=== PATIENT | female | born 1930 | race Caucasian/White ===

== ENCOUNTER 2017-11-19 07:57 | Emergency (ER) | payer MEDICARE, BC ==
[~2017-11-19] VITALS: Ht 162.6 cm; Wt 65.0 kg
[2017-11-19 08:12] VITALS: BP 178/81; PULSE 59; RESP 20; TEMP 98.5; O2SAT 100
[2017-11-19] MEDS ORDERED: MELA5 PO (08:31)
[2017-11-19] MEDS ORDERED: TRAZ50TA12 PO (08:31)
[2017-11-19] MEDS ORDERED: METO1TAB42 PO (08:31)
[2017-11-19] MEDS ORDERED: AMIO0.1T PO (08:31)
[2017-11-19] MEDS ORDERED: ASPI-516 CHEW (08:31)
[2017-11-19] MEDS ORDERED: LOSA25TA PO ×2 (08:31)
[2017-11-19] MEDS ORDERED: FURO1TAB60 PO (08:31)
[2017-11-19] MEDS ORDERED: HYDR-3516 PO (08:31)
[2017-11-19] MEDS ORDERED: KLOR10TA PO (08:31)
[2017-11-19] MEDS ORDERED: PRAV40TA PO (08:31)
[2017-11-19] MEDS ORDERED: SYNT112T PO (08:31)
[2017-11-19] MEDS ORDERED: CELE200C PO (08:31)
[2017-11-19] MEDS ORDERED: CYCLOBENZAPRINE HCL 10 MG TAB PO ONE (08:45)
[2017-11-19] MEDS ORDERED: ACETAMINOPHEN 325 MG TAB PO ONE (08:45)
[2017-11-19 08:48] LABS: AUTOMATED NEUTROPHIL # 5.5 TH/MM3 (1.8-7.7); BASOPHIL % 0.4 % (0.0-2.0); EOSINOPHIL # 0.1 TH/MM3 (0-0.4); EOSINOPHIL % 1.8 % (0.0-4.0); HEMATOCRIT 38.8 % (35.0-46.0); LYMPH % 12.3 % (9.0-44.0); LYMPHOCYTE # 0.9 TH/MM3 (1.0-4.8); MEAN CELL VOLUME 89.8 FL (80.0-100.0); MEAN CORPUSCULAR HEMOGLOBIN 30.2 PG (27.0-34.0); MEAN CORPUSCULAR HGB CONC 33.7 % (32.0-36.0); MEAN PLATELET VOLUME 8.4 FL (7.0-11.0); MONO % 8.8 % (0.0-8.0); MONOCYTE # 0.6 TH/MM3 (0-0.9); NEUT % 76.7 % (16.0-70.0); PLATELET COUNT 148 TH/MM3 (150-450); RED BLOOD COUNT 4.31 MIL/MM3 (4.00-5.30); RED CELL DISTRIBUTION WIDTH 14.9 % (11.6-17.2); WHITE BLOOD COUNT 7.1 TH/MM3 (4.0-11.0)
--- NOTE | 2017-11-19 09:05 | RADRPT ---
EXAM DATE/TIME: 11/19/2017 08:35 [facility] COMPARISON: No previous studies available for comparison. INDICATIONS : Patient fell, complains of head and neck pain RADIATION DOSE: 56.35 CTDIvol (mGy) MEDICAL HISTORY : Cardiovascular disease. Hypertension. Melanoma SURGICAL HISTORY : None. ENCOUNTER: Initial ACUITY: 1 day PAIN SCALE: 9/10 LOCATION: cranial TECHNIQUE: Multiple contiguous axial images were obtained of the head. Using automated exposure control and adj ustment of the mA and/or kV according to patient size, radiation dose was kept as low as reasonably a chievable to obtain optimal diagnostic quality images. DICOM format image data is available electro nically for review and comparison. FINDINGS: CEREBRUM: Very small amount of subdural blood layering along e along the left tentorial edge and in the posteri or parafalcine space. There is no parenchymal hemorrhage. Ventricular size is appropriate. POSTERIOR FOSSA: The cerebellum and brainstem are intact. The 4th ventricle is midline. The cerebellopontine angle i s unremarkable. EXTRACRANIAL: The visualized portion of the orbits is intact. SKULL: The calvaria is intact. No evidence of skull fracture. CONCLUSION: Small posterior parafalcine subdural hematoma. Aryan Montes MD FACR on November 19, 2017 at 9:00 Board Certified Radiologist. This report was verified electronically.
[2017-11-19 09:15] LABS: ALBUMIN 3.7 GM/DL (3.4-5.0); AST (GOT) 37 U/L (15-37); BLOOD UREA NITROGEN 26 MG/DL (7-18); CALCIUM 9.2 MG/DL (8.5-10.1); CHLORIDE 105 MEQ/L (98-107); CREATININE 1.16 MG/DL (0.50-1.00); GLOMERULAR FILTRATION RATE 44 ML/MIN (>89); GLUCOSE,RANDOM 122 MG/DL (74-106); SODIUM (NA) 139 MEQ/L (136-145)
[2017-11-19 09:16] LABS: ALT (GPT) 37 U/L (10-53)
[2017-11-19 09:20] LABS: ALKALINE PHOSPHATASE 77 U/L (45-117); TOTAL BILIRUBIN ADULT 0.4 MG/DL (0.2-1.0); TOTAL PROTEIN 7.1 GM/DL (6.4-8.2); TROPONIN I LESS THAN 0.02 NG/ML (0.02-0.05)
--- NOTE | 2017-11-19 09:42 | RADRPT ---
EXAM DATE/TIME: 11/19/2017 08:35 [facility] COMPARISON: CT BRAIN W/O CONTRAST, November 19, 2017, 8:35. INDICATIONS : Patient fell, complains of head and neck pain RADIATION DOSE: 21.17 CTDIvol (mGy) MEDICAL HISTORY : Cardiovascular disease. Hypertension. melanoma SURGICAL HISTORY : None. ENCOUNTER: Initial ACUITY: 1 day PAIN SCALE: 8/10 LOCATION: neck TECHNIQUE: Volumetric scanning of the cervical spine was performed. Multiplanar reconstructions in the sagittal, coronal and oblique axial planes were performed. Using automated exposure control and adjustment o f the mA and/or kV according to patient size, radiation dose was kept as low as reasonably achievable to obtain optimal diagnostic quality images. DICOM format image data is available electronically f or review and comparison. FINDINGS: VERTEBRAE: Normal vertebral body height. ALIGNMENT: There is no fracture base of the dens with anterior subluxation by 6 mm. This is associated with mar ked scoliosis. The body of C2 is intact. C2-C3: Moderate neuroforaminal encroachment on the right with facet disease C3-C4: Degenerative changes in the facets without fracture C4-C5: Moderate uncinate ridging with bilateral neural foramen encroachment C5-C6: Moderately ridging and bilateral foramen encroachment C6-C7: Mild uncinate ridging. Neural foramina are adequate C7-T1: The bony spinal canal is normal in size. No evidence of disc bulge or herniation. The neural forami na are bilaterally patent. CONCLUSION: Fracture base of the dens without subluxation as described above. There is moderate spinal stenosis at the C2 level. Canal with measures 9 mm Scoliosis with moderate degenerative changes in the cervical spine.. Aryan Montes MD FACR on November 19, 2017 at 9:35 Board Certified Radiologist. This report was verified electronically.
--- NOTE | 2017-11-19 10:27 | PD ---
HPI Chief Complaint: Fall Time Seen by Provider: 08:09 Travel History International Travel<30 days: No Contact w/Intl Traveler<30days: No Traveled to known affect area: No History of Present Illness HPI Patient is a 87-year-old female who comes in after a fall today. She is unsure as to how she fell. It is unclear whether she was trying to get up from bed to use the bathroom where she just rolled out of bed and hit her head. She is complaining of neck pain. She denies numbness or tingling in her extremities. She denies nausea or vomiting. She denies blurred vision or dizziness. She is not taking anything for the pain prior to arrival. Severity is moderate. PFSH Past Medical History Atrial Fibrillation: Yes Depression: Yes Cancer: Yes (MELANOMA) Cardiac Catheterization: Yes Congestive Heart Failure: Yes Diminished Hearing: No Hypertension: Yes Neurologic: Yes (MENINGIOMA BRAIN) Migraines: Yes Thyroid Disease: Yes Tetanus Vaccination: < 5 Years Influenza Vaccination: Yes : 4 Para: 4 Miscarriage: 0 : 0 Past Surgical History Cholecystectomy: Yes Other Surgery: Yes (BILAT QUAD TEAR, R TOE AMPUTATIONS) Social History Alcohol Use: No Tobacco Use: No Substance Use: No Allergies-Medications (Allergen,Severity, Reaction): Coded Allergies: Cephalosporins (Verified Allergy, Severe, 11/19/17) Macrolide Antibiotics (Verified Allergy, Severe, 11/19/17) Penicillins (Verified Allergy, Severe, 11/19/17) bee venom protein (honey bee) (Verified Allergy, Severe, 11/19/17) erythromycin base (Verified Allergy, Severe, 11/19/17) ethyl alcohol (Verified Allergy, Severe, 11/19/17) Reported Meds & Prescriptions Reported Meds & Active Scripts Active Reported Trazodone (Trazodone HCl) 50 Mg Tab 50 Mg PO HS Synthroid (Levothyroxine Sodium) 112 Mcg Tab 112 Mcg PO DAILY Pravachol (Pravastatin) 40 Mg Tab 40 Mg PO DAILY Metoprolol Succinate ER 24 HR (Metoprolol Succinate) 25 Mg Tab 25 Mg PO DAILY Melatonin 5 Mg Tab 5 Mg PO HS Losartan (Losartan Potassium) 25 Mg Tab 25 Mg PO DAILY Losartan (Losartan Potassium) 25 Mg Tab 12.5 Mg PO HS Lasix (Furosemide) 40 Mg Tab 40 Mg PO DAILY Klor-Con 10 (Potassium Chloride) 10 Meq Tab 10 Meq PO DAILY Hydrocodone-Acetaminophen 5-325 mg Tab 1 Tab PO Q4H PRN Celebrex (Celecoxib) 200 Mg Cap 200 Mg PO DAILY Aspirin 81 Mg Chew 81 Mg CHEW DAILY Amiodarone (Amiodarone HCl) 100 Mg Tab 100 Mg PO DAILY Review of Systems Except as stated in HPI: all other systems reviewed are Neg General / Constitutional: No: Fever, Chills HENT: Positive: Headaches, Neck Pain, No: Lightheadedness Cardiovascular: No: Chest Pain or Discomfort Respiratory: No: Shortness of Breath Gastrointestinal: No: Nausea, Vomiting Neurologic: No: Dizziness, Sensory Disturbance Physical Exam Narrative GENERAL: Awake and alert, in mild distress due to pain. SKIN: Focused skin assessment warm/dry. No open wounds. HEAD: Atraumatic. Normocephalic. EYES: Pupils equal and round and reactive. No scleral icterus. Extraocular movements intact. ENT: Mucous membranes pink and moist. NECK: Trachea midline. No JVD. Cervical collar in place. CARDIOVASCULAR: Regular rate and rhythm. No murmur appreciated. RESPIRATORY: No accessory muscle use. Clear to auscultation. Breath sounds equal bilaterally. GASTROINTESTINAL: Abdomen soft, non-tender, nondistended. MUSCULOSKELETAL: No obvious deformities. No clubbing. No cyanosis. No edema. NEUROLOGICAL: Awake and alert. No obvious cranial nerve deficits. Motor grossly within normal limits. Normal speech. PSYCHIATRIC: Appropriate mood and affect; insight and judgment normal. Data Data Last Documented VS Vital Signs Date Time Temp Pulse Resp B/P (MAP) Pulse Ox O2 Delivery O2 Flow Rate FiO2 11/19/17 08:12 98.5 59 20 178/81 (113) [address] Brain W/O Iv Contrast(Rout) (11/19/17 ) Ct Cerv Spine W/O Contrast (11/19/17 ) Complete Blood Count With Diff (11/19/17 08:09) Comprehensive Metabolic Panel (11/19/17 08:09) Iv Access Insert/Monitor (11/19/17 08:09) Troponin I (11/19/17 08:09) Electrocardiogram (11/19/17 ) Acetaminophen (Tylenol) (11/19/17 08:45) Cyclobenzaprine (Flexeril) (11/19/17 08:45) Admit Order (Ed Use Only) (11/19/17 ) Labs Laboratory Tests Test 11/19/17 08:15 White Blood Count 7.1 TH/MM3 Red Blood Count 4.31 MIL/MM3 Hemoglobin 13.0 GM/DL Hematocrit 38.8 % Mean Corpuscular Volume 89.8 FL Mean Corpuscular Hemoglobin 30.2 PG Mean Corpuscular Hemoglobin Concent 33.7 % Red Cell Distribution Width 14.9 % Platelet Count 148 TH/MM3 Mean Platelet Volume 8.4 FL Neutrophils (%) (Auto) 76.7 % Lymphocytes (%) (Auto) 12.3 % Monocytes (%) (Auto) 8.8 % Eosinophils (%) (Auto) 1.8 % Basophils (%) (Auto) 0.4 % Neutrophils # (Auto) 5.5 TH/MM3 Lymphocytes # (Auto) 0.9 TH/MM3 Monocytes # (Auto) 0.6 TH/MM3 Eosinophils # (Auto) 0.1 TH/MM3 Basophils # (Auto) 0.0 TH/MM3 CBC Comment DIFF FINAL Differential Comment Blood Urea Nitrogen 26 MG/DL Creatinine 1.16 MG/DL Random Glucose 122 MG/DL Total Protein 7.1 GM/DL Albumin 3.7 GM/DL Calcium Level 9.2 MG/DL Alkaline Phosphatase 77 U/L Aspartate Amino Transf (AST/SGOT) 37 U/L Alanine Aminotransferase (ALT/SGPT) 37 U/L Total Bilirubin 0.4 MG/DL Sodium Level 139 MEQ/L Potassium Level 3.9 MEQ/L Chloride Level 105 MEQ/L Carbon Dioxide Level 25.0 MEQ/L Anion Gap 9 MEQ/L Estimat Glomerular Filtration Rate 44 ML/MIN Troponin I LESS THAN 0.02 NG/ML MDM Medical Decision Making Medical Screen Exam Complete: Yes Emergency Medical Condition: Yes Interpretation(s) ECG shows left bundle branch block. Differential Diagnosis Cervical spine fracture versus ICH versus fall Narrative Course Patient is an 87-year-old female who comes in complaining of neck pain after fall. She is moving all her extremities, denies numbness or tingling. CT head and C-spine performed shows a small subdural hematoma as well as a C2 fracture. Patient maintained in a c-collar. Given pain medicine. Dr. Hidalgo of neurosurgery contacted, he will see the patient. Patient admitted to the trauma service. Last [address] 11/19/17 0000 Signed Impressions: Service Date/Time: Sunday, November 19, 2017 08:35 - CONCLUSION: Small posterior parafalcine subdural hematoma. Aryan Montes MD FACR Cervical Spine CT 11/19/17 0000 Signed Impressions: Service Date/Time: Sunday, November 19, 2017 08:35 - CONCLUSION: Fracture base of the dens without subluxation as described above. There is moderate spinal stenosis at the C2 level. Canal with measures 9 mm Scoliosis with moderate degenerative changes in the cervical spine.. Aryan Montes MD FACR Patient was admitted, but then decided she would rather be transferred to [place], where she is from. Explained to the patient that we are able to manage all of her injuries here and are happy to do so, however, it is her wish to be transferred. Her son called Dr. Landers at [facility] who says he will make the appropriate phone calls to arrange for transfer. I received a phone call from the PA for Dr. Pichardo, the hospitalist and accepting physician at [facility]. Dr. Willis is the accepting neurosurgeon. This is an ELECTIVE transfer. Patient understands this is elective and per her wishes. Diagnosis Primary Impression: Subdural hematoma Additional Impression: C2 cervical fracture Qualified Codes: S12.121A - Other nondisplaced dens fracture, initial encounter for closed fracture Admitting Information Admitting Physician Requests: Admit Janice Laurent MD Nov 19, 2017 10:27
--- NOTE | 2017-11-19 10:42 | PD.CONS ---
HPI Service Neurosurgery Consult Requested By Dr Rivera Reason for Consult Fall with C2 fracture Primary Care Physician Unknown History of Present Illness this a 87-year-old female brought to [place] [facility] after a fall today. She is unsure as to how she fell. Apparently she was trying to get up from bed to use the bathroom where she just rolled out of bed and hit her head. No loss of consciousness. No seizure activity. No tongue bitting. no incontinence of stool or urine. She is complaining of severe axial neck pain. She denies numbness or tingling in her extremities. She denies nausea or vomiting. She denies blurred vision or dizziness. She is not taking anything for the pain prior to arrival. No incontinence of stool or urine. CT brain showed small intracranial hemorrhage. Ct C spine showed an unstable c2 fracture. Neurosurgery consultation was requested Review of Systems Constitutional: DENIES: Diaphoretic episodes, Fatigue, Fever, Weight gain, Weight loss, Chills, Dizziness, Change in appetite, Night Sweats Endocrine: DENIES: Abnorml menstrual pattern, Heat/cold intolerance, Polydipsia , Polyuria, Polyphagia Eyes: DENIES: Blurred vision, Diplopia, Eye inflammation, Eye pain, Vision loss , Photosensitivity, Double Vision Ears, nose, mouth, throat: DENIES: Tinnitus, Hearing loss, Vertigo, Nasal discharge, Oral lesions, Throat pain, Hoarseness, Ear Pain, Running Nose, Epistaxis, Sinus Pain, Toothache, Odynophagia Respiratory: DENIES: Apneas, Cough, Snoring, Wheezing, Hemoptysis, Sputum production, Shortness of breath Gastrointestinal: DENIES: Abdominal pain, Black stools, Bloody stools, Constipation, Diarrhea, Nausea, Vomiting, Difficulty Swallowing, Anorexia Genitourinary: DENIES: Abnormal vaginal bleeding, Dysmenorrhea, Dyspareunia, Sexual dysfunction, Urinary frequency, Urinary incontinence, Urgency, Hematuria , Dysuria, Nocturia, Vaginal discharge Musculoskeletal: COMPLAINS OF: Joint pain, Neck pain, DENIES: Muscle aches, Stiffness, Joint Swelling, Back pain Integumentary: DENIES: Abnormal pigmentation, Pruritus, Rash, Nail changes, Breast masses, Breast skin changes, Nipple discharge Hematologic/lymphatic: DENIES: Bruising, Lymphadenopathy Immunologic/allergic: DENIES: Eczema, Urticaria Neurologic: DENIES: Abnormal gait, Headache, Localized weakness, Paresthesias, Seizures, Speech Problems, Tremor, Poor Balance Psychiatric: DENIES: Anxiety, Confusion, Mood changes, Depression, Hallucinations, Agitation, Suicidal Ideation, Homicidal Ideation, Delusions Past Family Social History Allergies: Coded Allergies: Cephalosporins (Verified Allergy, Severe, 11/19/17) Macrolide Antibiotics (Verified Allergy, Severe, 11/19/17) Penicillins (Verified Allergy, Severe, 11/19/17) bee venom protein (honey bee) (Verified Allergy, Severe, 11/19/17) erythromycin base (Verified Allergy, Severe, 11/19/17) ethyl alcohol (Verified Allergy, Severe, 11/19/17) Past Medical History Atrial Fibrillation: Yes Depression: Yes Cancer: Yes (MELANOMA) Cardiac Catheterization: Yes Congestive Heart Failure: Yes Diminished Hearing: No Hypertension: Yes Neurologic: Yes (MENINGIOMA BRAIN) Migraines: Yes Thyroid Disease: Yes Past Surgical History Cholecystectomy: Yes Other Surgery: Yes (BILAT QUAD TEAR, R TOE AMPUTATIONS) Reported Medications Reported Trazodone (Trazodone HCl) 50 Mg Tab 50 Mg PO HS Synthroid (Levothyroxine Sodium) 112 Mcg Tab 112 Mcg PO DAILY Pravachol (Pravastatin) 40 Mg Tab 40 Mg PO DAILY Metoprolol Succinate ER 24 HR (Metoprolol Succinate) 25 Mg Tab 25 Mg PO DAILY Melatonin 5 Mg Tab 5 Mg PO HS Losartan (Losartan Potassium) 25 Mg Tab 25 Mg PO DAILY Losartan (Losartan Potassium) 25 Mg Tab 12.5 Mg PO HS Lasix (Furosemide) 40 Mg Tab 40 Mg PO DAILY Klor-Con 10 (Potassium Chloride) 10 Meq Tab 10 Meq PO DAILY Hydrocodone-Acetaminophen 5-325 mg Tab 1 Tab PO Q4H PRN Celebrex (Celecoxib) 200 Mg Cap 200 Mg PO DAILY Aspirin 81 Mg Chew 81 Mg CHEW DAILY Amiodarone (Amiodarone HCl) 100 Mg Tab 100 Mg PO DAILY Social History Alcohol Use: No Tobacco Use: No Substance Use: No Physical Exam Vital Signs Vital Signs Date Time Temp Pulse Resp B/P (MAP) Pulse Ox O2 Delivery O2 Flow Rate FiO2 11/19/17 08:12 98.5 59 20 178/81 (113) 100 Physical Exam GENERAL: Awake and alert, in mild distress due to pain. The patient is alert, awake and oriented to time, place and person. Speech is fluent. Cranial nerve examination: pupils to be equal, round and reactive to light. Extra-ocular movements are intact. Facial motor and sensory function are normal and symmetrical. Gross hearing appears intact. Sternocleidomastoid and trapezius muscles are symmetrical. Other cranial nerves are intact. Neck is supported by a hard cervical collar Muscle strength is normal in all muscle groups of both upper and lower extremities. Sensory examination is intact to light touch and pin prick in both the upper and lower extremities. Deep tendon reflexes are symmetrical in both upper and lower extremities. There is a bilateral plantar flexion response. Cerebellar examination is unremarkable, without deficits. SKIN: Focused skin assessment warm/dry. No open wounds. HEAD: Atraumatic. Normocephalic. EYES: Pupils equal and round and reactive. No scleral icterus. Extraocular movements intact. ENT: Mucous membranes pink and moist. NECK: Trachea midline. No JVD. Cervical collar in place. CARDIOVASCULAR: Regular rate and rhythm. No murmur appreciated. RESPIRATORY: No accessory muscle use. Clear to auscultation. Breath sounds equal bilaterally. GASTROINTESTINAL: Abdomen soft, non-tender, nondistended. MUSCULOSKELETAL: No obvious deformities. No clubbing. No cyanosis. No edema. PSYCHIATRIC: Appropriate mood and affect; insight and judgment normal. Laboratory Laboratory Tests Test 11/19/17 08:15 White Blood Count 7.1 Red Blood Count 4.31 Hemoglobin 13.0 Hematocrit 38.8 Mean Corpuscular Volume 89.8 Mean Corpuscular Hemoglobin 30.2 Mean Corpuscular Hemoglobin Concent 33.7 Red Cell Distribution Width 14.9 Platelet Count 148 Mean Platelet Volume 8.4 Neutrophils (%) (Auto) 76.7 Lymphocytes (%) (Auto) 12.3 Monocytes (%) (Auto) 8.8 Eosinophils (%) (Auto) 1.8 Basophils (%) (Auto) 0.4 Neutrophils # (Auto) 5.5 Lymphocytes # (Auto) 0.9 Monocytes # (Auto) 0.6 Eosinophils # (Auto) 0.1 Basophils # (Auto) 0.0 CBC Comment DIFF FINAL Differential Comment Blood Urea Nitrogen 26 Creatinine 1.16 Random Glucose 122 Total Protein 7.1 Albumin 3.7 Calcium Level 9.2 Alkaline Phosphatase 77 Aspartate Amino Transf (AST/SGOT) 37 Alanine Aminotransferase (ALT/SGPT) 37 Total Bilirubin 0.4 Sodium Level 139 Potassium Level 3.9 Chloride Level 105 Carbon Dioxide Level 25.0 Anion Gap 9 Estimat Glomerular Filtration Rate 44 Troponin I LESS THAN 0.02 Result Diagram: 11/19/1781411/19/1715 Imaging Last [address] 11/19/17 0000 Signed Impressions: Service Date/Time: Sunday, November 19, 2017 08:35 - CONCLUSION: Small posterior parafalcine subdural hematoma. Aryan Montes MD FACR Cervical Spine CT 11/19/17 0000 Signed Impressions: Service Date/Time: Sunday, November 19, 2017 08:35 - CONCLUSION: Fracture base of the dens without subluxation as described above. There is moderate spinal stenosis at the C2 level. Canal with measures 9 mm Scoliosis with moderate degenerative changes in the cervical spine.. Aryan Montes MD FACR Attending Statement I reviewed her radiological studies Last [address] 11/19/17 0000 Signed Impressions: Service Date/Time: Sunday, November 19, 2017 08:35 - CONCLUSION: Small posterior parafalcine subdural hematoma. Aryan Montes MD FACR Cervical Spine CT 11/19/17 0000 Signed Impressions: Service Date/Time: Sunday, November 19, 2017 08:35 - CONCLUSION: Fracture base of the dens without subluxation as described above. There is moderate spinal stenosis at the C2 level. Canal with measures 9 mm Scoliosis with moderate degenerative changes in the cervical spine.. Aryan Montes MD FACR Subdural hematoma. Non operative treatment. Neuro checks in a serial fashion. A follow-up CT of the head will be obtained in 24 hours. C2 fracture. Displaced. This is an unstable injury. Bracing with [place] collar. MRI C spine REDD. She may need a close reduction with placement of halo brace, versus surgical stabilization of the fracture. She is 87 years old which places her at quite high surgical risk Pulmonary.Aggressive pulmonary toilette, nasotracheal suction, and breathing treatments with nebulizers. Renal. monitor closely urine output, BUN and creatinine Endocrine. Monitor serial Acu checks and SSI as needed in detail ID monitor for signs of infection Protonix for stress ulcer prophylaxis Point Value = 1 Point Value = 2 Point Value = 3 Point Value = 5 Age 41-60 Minor surgery BMI > 25 kg/m2 Swollen legs Varicose veins or History of unexplained or recurrent spontaneous Oral contraceptives or hormone replacement Sepsis (< 1 month) Serious lung disease, including pneumonia (< 1 month) Abnormal pulmonary function Acute myocardial infarction Congestive heart failure (< 1 month) History of inflammatory bowel disease Medical patient at bed rest Age 61-74 Arthroscopic surgery Major open surgery (> 45 min) Laparoscopic surgery (> 45 min) Malignancy Confined to bed (> 72 hours) Immobilizing plaster cast Central venous access Age >= 75 History of VTE Family history of VTE Factor V Leiden Prothrombin [id number] Lupus anticoagulant Anticardiolipin antibodies Elevated serum homocysteine Heparin-induced thrombocytopenia Other congenital or acquired thrombophilia Stroke (< 1 month) Elective arthroplasty Hip, pelvis, or leg fracture Acute spinal cord injury (< 1 month) Ender tracy and SCD's for DVT prophylaxis. Further ecommendations will be provided depending on her MRI results She has been admitted, but then decided she would rather be transferred to [place], where she is from. We explained to the patient that we are able to manage all of her injuries here and are happy to do so, however, it is her wish to be transferred. Her son called Dr. Landers at [facility] who says he will make the appropriate arrangements for transfer. This transfer is elective and per her wishes. Joe Hidalgo MD Nov 19, 2017 10:42
[2017-11-19] MEDS ORDERED: HYDROmorphone HCL PF 2 MG/ML VIAL IV PUSH ONE ×3 (10:45→18:15)
[2017-11-19 11:49] VITALS: BP 146/67; PULSE 63; RESP 16; O2SAT 96
[2017-11-19 13:41] VITALS: BP 129/62; PULSE 58; RESP 16; O2SAT 98
[2017-11-19 15:05] VITALS: BP 110/53; PULSE 56; RESP 15; O2SAT 99
[2017-11-19 17:15] VITALS: BP 160/67; PULSE 61; RESP 15; O2SAT 100
[2017-11-19 18:21] VITALS: BP 173/77; PULSE 70; RESP 18; O2SAT 98
--- NOTE | 2017-11-19 20:12 | EKG ---
Date Performed: 11/19/2017 Time Performed: 08:21:31 PTAGE: 87 years EKG: Sinus rhythm WITH PAC LEFT BUNDLE BRANCH BLOCK ABNORMAL ECG NO PREVIOUS TRACING DOCTOR: Wade Hartman Interpretating Date/Time 11/19/2017 20:11:54
== END 2017-11-19 20:37 | disposition short-term general hospital (02) ==
LOC: NEPE 07:57 → NEDA 10:22 → UNDOADMIN 10:22 → UNDODISIN 22:00
DX: S06.5X0A Traumatic subdural hemorrhage without loss of consciousness, initial encounter (principal); S12.121A Other nondisplaced dens fracture, initial encounter for closed fracture; W06.XXXA Fall from bed, initial encounter; I44.7 Left bundle-branch block, unspecified; R94.31 Abnormal electrocardiogram [ECG] [EKG]; I11.0 Hypertensive heart disease with heart failure; I50.9 Heart failure, unspecified; E07.9 Disorder of thyroid, unspecified; F32.9 Major depressive disorder, single episode, unspecified
CPT/HCPCS: 70450; 72125; 80053; 84484; 85025; 93005; 99285; J1170; L0150; L0172